=== PATIENT | male | born 1950 | race Caucasian/White ===

== ENCOUNTER 2016-10-09 17:58 | Emergency (ER) | payer MEDICARE, OTHER ==
--- NOTE | 2016-10-09 19:18 | ED ---
General Adult HPI - General Source: patient, RN notes reviewed Mode of arrival: ambulatory <Richard Kerns - Last Filed: 10/09/16 22:05> <Clark Harper - Last Filed: 10/10/16 00:03> - General Chief complaint: Recheck/Abnormal Lab/Rx Stated complaint: ABNORMAL LABS, LIVER FUNCTION BILIRUBIN Time Seen by Provider: 10/09/16 18:50 - History of Present Illness Initial comments: This is a 65-year-old male who comes emergency Department because early in the day he went saw his primary medical care doctor and had some lab work done and they noted that his liver enzymes were elevated so they sent him to the emergency department. Patient states for the last week has felt extremely fatigued and ill however he has no pain. Patient denies any fever chills. Patient denies chest pain difficulty breathing first of breath. Patient states he breaks out in a sweat with even mild exertion. Patient denies any headache patient denies numbness or focal weakness. Patient denies any back pain. Patient denies any recent injury or trauma. states she thinks his abdomen is more distended than normal. Patient states he is a fairly heavy drinker of beer and wine almost daily. Patient states he regularly has his liver enzymes drawn because he is on a statin drug. (Richard Kerns) - Related Data Home Medications Medication Instructions Recorded Confirmed Atorvastatin [Lipitor] 20 mg PO HS 10/09/16 10/09/16 Ciprofloxacin HCl [Cipro] 500 mg PO Q12HR 10/09/16 10/09/16 [place]-3 Fatty Acids/Fish Oil [Fish 1 cap PO DAILY 10/09/16 10/09/16 Oil 1,000 mg Softgel] Omeprazole [PriLOSEC] 20 mg PO DAILY 10/09/16 10/09/16 Vitamin B Complex 1 cap PO DAILY 10/09/16 10/09/16 Allergies Allergy/AdvReac Type Severity Reaction Status Date / Time No Known Allergies Allergy Verified 10/09/16 18:52 Review of Systems ROS Other: All systems not noted in ROS Statement are negative. <Richard Kerns - Last Filed: 10/09/16 22:05> ROS Other: All systems not noted in ROS Statement are negative. <Clark Harper - Last Filed: 10/10/16 00:03> ROS Statement: Those systems with pertinent positive or pertinent negative responses have been documented in the HPI. Past Medical History Past Medical History: Hyperlipidemia History of Any Multi-Drug Resistant Organisms: None Reported Past Surgical History: Orthopedic Surgery Additional Past Surgical History / Comment(s): KNN, SHOULDER Past Psychological History: No Psychological Hx Reported Smoking Status: Never smoker Past Alcohol Use History: Occasional Past Drug Use History: None Reported <Richard Kerns - Last Filed: 10/09/16 22:05> General Exam <Richard Kerns - Last Filed: 10/09/16 22:05> <Clark Harper - Last Filed: 10/10/16 00:03> - General Exam Comments Initial Comments: GENERAL: Patient is well-developed and well-nourished. Patient is nontoxic and well- hydrated and is in mild distress. Patient was diaphoretic ENT: Neck is soft and supple. No significant lymphadenopathy is noted. Oropharynx is clear. Moist mucous membranes. Neck has full range of motion without eliciting any pain. EYES: The sclera were anicteric and conjunctiva were pink and moist. Extraocular movements were intact and pupils were equal round and reactive to light. Eyelids were unremarkable. PULMONARY: Unlabored respirations. Good breath sounds bilaterally. No audible rales rhonchi or wheezing was noted. CARDIOVASCULAR: There is a regular rate and rhythm without any murmurs gallops or rubs. ABDOMEN: Soft and nontender with normal bowel sounds. Mild distention of the abdomen. No palpable organomegaly was noted. There is no palpable pulsatile mass. SKIN: Skin is clear with no lesions or rashes and otherwise unremarkable. NEUROLOGIC: Patient is alert and oriented x3. Cranial nerves II through XII are grossly intact. Motor and sensory are also intact. Normal speech, volume and content. Symmetrical smile. MUSCULOSKELETAL: Normal extremities with adequate strength and full range of motion. No lower extremity swelling or edema. No calf tenderness. LYMPHATICS: No significant lymphadenopathy is noted PSYCHIATRIC: Normal psychiatric evaluation. Normal interpersonal interactions appears functionally intact in deals appropriately with others. No signs of depression. No signs of anxiety. (Richard Kerns) Medical Decision Making - Lab Data Result diagrams: 10/09/16 19:50 10/09/16 19:50 <Richard Kerns - Last Filed: 10/09/16 22:05> - Lab Data Result diagrams: 10/09/16 19:50 10/09/16 19:50 <Clark Harper - Last Filed: 10/10/16 00:03> - Medical Decision Making EKG shows a normal sinus rhythm at 99 bpm MS interval 294 QRS is 80 QT interval is 358 QTC is 459. Patient's EKG shows T-wave inversions in leads V4 V5 and V6. As well as T-wave flattening in leads [address] cMkeon will be taking over the care of this patient at 10 PM (Richard Kerns ) - Lab Data Lab Results 10/09/16 10/09/16 10/09/16 Range/Units 19:50 19:50 19:50 WBC 5.6 (3.8-10.6) k/uL RBC 4.16 L (4.30-5.90) m/uL Hgb 14.7 (13.0-17.5) gm/dL Hct 42.9 (39.0-53.0) % MCV 103.0 H (80.0-100.0) fL MCH 35.3 H (25.0-35.0) pg MCHC 34.3 (31.0-37.0) g/dL RDW 14.1 (11.5-15.5) % Plt Count 156 (150-450) k/uL Neutrophils % 56 % Lymphocytes % 35 % Monocytes % 5 % Eosinophils % 1 % Basophils % 1 % Neutrophils # 3.2 (1.3-7.7) k/uL Lymphocytes # 2.0 (1.0-4.8) k/uL Monocytes # 0.3 (0-1.0) k/uL Eosinophils # 0.1 (0-0.7) k/uL Basophils # 0.0 (0-0.2) k/uL Macrocytosis Slight PT 10.8 (9.0-12.0) sec INR 1.1 (<1.1) APTT 22.9 (22.0-30.0) sec Sodium 133 L (137-145) mmol/L Potassium 3.5 (3.5-5.1) mmol/L Chloride 98 (98-107) mmol/L Carbon Dioxide 20 L (22-30) mmol/L Anion Gap 15 mmol/L BUN 5 L (9-20) mg/dL Creatinine 0.67 (0.66-1.25) mg/dL Est GFR (MDRD) Af Amer >60 (>60 ml/min/1.73 sqM) Est GFR (MDRD) Non-Af >60 (>60 ml/min/1.73 sqM) Glucose 127 H (74-99) mg/dL Calcium 9.2 (8.4-10.2) mg/dL Magnesium 1.8 (1.6-2.3) mg/dL Total Bilirubin 3.5 H (0.2-1.3) mg/dL AST 808 H (17-59) U/L ALT 363 H (21-72) U/L Alkaline Phosphatase 203 H (38-126) U/L Troponin I (0.000-0.034) ng/mL Total Protein 7.2 (6.3-8.2) g/dL Albumin 4.1 (3.5-5.0) g/dL Serum Alcohol 94 mg/dL Hepatitis A IgM Ab NEGATIVE Hep Bs Antigen Negative Hep B Core IgM Ab NEGATIVE Hep C IgG Ab Negative (Negative) 10/09/16 Range/Units 19:50 WBC (3.8-10.6) k/uL RBC (4.30-5.90) m/uL Hgb (13.0-17.5) gm/dL Hct (39.0-53.0) % MCV (80.0-100.0) fL MCH (25.0-35.0) pg MCHC (31.0-37.0) g/dL RDW (11.5-15.5) % Plt Count (150-450) k/uL Neutrophils % % Lymphocytes % % Monocytes % % Eosinophils % % Basophils % % Neutrophils # (1.3-7.7) k/uL Lymphocytes # (1.0-4.8) k/uL Monocytes # (0-1.0) k/uL Eosinophils # (0-0.7) k/uL Basophils # (0-0.2) k/uL Macrocytosis PT (9.0-12.0) sec INR (<1.1) APTT (22.0-30.0) sec Sodium (137-145) mmol/L Potassium (3.5-5.1) mmol/L Chloride (98-107) mmol/L Carbon Dioxide (22-30) mmol/L Anion Gap mmol/L BUN (9-20) mg/dL Creatinine (0.66-1.25) mg/dL Est GFR (MDRD) Af Amer (>60 ml/min/1.73 sqM) Est GFR (MDRD) Non-Af (>60 ml/min/1.73 sqM) Glucose (74-99) mg/dL Calcium (8.4-10.2) mg/dL Magnesium (1.6-2.3) mg/dL Total Bilirubin (0.2-1.3) mg/dL AST (17-59) U/L ALT (21-72) U/L Alkaline Phosphatase (38-126) U/L Troponin I <0.012 (0.000-0.034) ng/mL Total Protein (6.3-8.2) g/dL Albumin (3.5-5.0) g/dL Serum Alcohol mg/dL Hepatitis A IgM Ab Hep Bs Antigen Hep B Core IgM Ab Hep C IgG Ab (Negative) Disposition <Richard Kerns - Last Filed: 10/09/16 22:05> <Clark Harper - Last Filed: 10/10/16 00:03> Clinical Impression: Hepatitis Disposition: HOME SELF-CARE Condition: Fair Instructions: Non-Alcoholic Fatty Liver Disease (ED) Additional Instructions: As we discussed, follow-up with your physician regarding the liver test results. Avoid using any products with Tylenol. Do not drink any alcohol. Do not use any statin medications. Referrals: Richard Deshpande MD [Primary Care Provider] - 1-2 days Blanche Hernandez MD [STAFF PHYSICIAN] - 1-2 days
[2016-10-09 20:00] LABS: Basophils % (A) 1 %; CH 35.6; CHCM 34.7; Eosinophils # (A) 0.1 k/uL (0-0.7); Eosinophils % (A) 1 %; HCT 42.9 % (39.0-53.0); HDW 2.51; HGB 14.7 gm/dL (13.0-17.5); Luc % (Auto) 2; Lymphocytes % (A) 35 %; MCH 35.3 pg (25.0-35.0); MCHC 34.3 g/dL (31.0-37.0); Macrocytosis Slight; Mean Platelet Volume 7.7; Monocytes # (A) 0.3 k/uL (0-1.0); Monocytes % (A) 5 %; Neutrophils # (A) 3.2 k/uL (1.3-7.7); Neutrophils % (A) 56 %; RBC 4.16 m/uL (4.30-5.90); RDW 14.1 % (11.5-15.5); WBC 5.6 k/uL (3.8-10.6); WBC (Perox) 5.33
[2016-10-09 20:12] LABS: INR 1.1 (<1.1); Partial Thromboplastin Time 22.9 sec (22.0-30.0); Prothrombin Time 10.8 sec (9.0-12.0)
[2016-10-09 20:18] LABS: ALT 363 U/L (21-72); Alkaline Phosphatase 203 U/L (38-126); Anion Gap 15 mmol/L; Blood Urea Nitrogen 5 mg/dL (9-20); Calcium 9.2 mg/dL (8.4-10.2); Carbon Dioxide 20 mmol/L (22-30); Chloride 98 mmol/L (98-107); Glucose 127 mg/dL (74-99); Magnesium 1.8 mg/dL (1.6-2.3); Non-African American GFR(MDRD) >60 (>60 ml/min/1.73 sqM); Potassium 3.5 mmol/L (3.5-5.1); Sodium 133 mmol/L (137-145); Total Bilirubin 3.5 mg/dL (0.2-1.3); Total Protein 7.2 g/dL (6.3-8.2)
[2016-10-09 20:25] LABS: AST 808 U/L (17-59)
[2016-10-09 20:27] LABS: Alcohol 94 mg/dL
[2016-10-09 20:47] LABS: Hepatitis B Surface Ag Index 0.08
[2016-10-09 20:53] LABS: Hepatitis B Core IgM Index 0.05
--- NOTE | 2016-10-09 21:21 | US ---
EXAMINATION TYPE: US abdomen complete DATE OF EXAM: 10/09/2016 9:04 PM COMPARISON: NONE CLINICAL HISTORY: Nausea . Elevated liver enzymes EXAM MEASUREMENTS: Liver Length: 23.6 cm Gallbladder Wall: 0.2 cm CBD: 0.3 cm Spleen: 10.4 cm Right Kidney: 11.1 x 5.6 x 6.3 cm Left Kidney: 11.3 x 6.2 x 5.5 cm Pancreas: Obscured by bowel gas, visualized portions show no mass Liver: Increased attenuation. Course, heterogeneous echotexture. Enlarged Gallbladder: No stones or sludge visualized Evidence for sonographic Mario's sign: No CBD: wnl as visualized, distal portion obscured by bowel gas Spleen: wnl Right Kidney: No hydronephrosis or masses seen Left Kidney: Hyperechoic area visualized lower pole measuring 0.6 cm nonspecific. Upper IVC: Limited visualization due to overlying bowel, visualized portions wnl Abd Aorta: Limited visualization due to overlying bowel, visualized portions wnl Pancreas is obscured by overlying bowel gas. Liver is heterogeneously hyperechoic in appearance witho ut intrahepatic ductal dilatation. Evaluation for focal masses is suboptimal due to the heterogeneity . Visualized portion of gallbladder is unremarkable. IMPRESSION: Suboptimal study, marked heterogeneity of liver is consistent with diffuse fatty infiltra tion or underlying hepatocellular disease. Imaging guided random biopsy for tissue analysis can be pe rformed if desired.
[2016-10-09] MEDS ORDERED: RX INFO: IV CONTRAST WAS GIVEN 1 EACH MISC MISCELLANE PRN (21:57)
[2016-10-09 22:11] VITALS: TEMP 99.8
--- NOTE | 2016-10-09 23:05 | CT ---
EXAM: CT Abdomen and Pelvis With Intravenous Contrast. CLINICAL HISTORY: Reason: Pain TECHNIQUE: Axial computed tomography images of the abdomen and pelvis with intravenous contrast. CTDI is 38.2mGy and DLP is 1532.5 MGy-cm This CT exam was performed using one or more of the following dose reduction techniques: automated exposure control, adjustment of the mA and/or kV according to patient size, and/or use of iterative reconstruction technique. COMPARISON: No relevant prior studies available. FINDINGS: Lower thorax: Imaged lung bases are clear. Moderate hiatal hernia. ABDOMEN: Liver: Evidence of hepatic fatty infiltration. No focal hepatic abnormalities identified. Gallbladder and bile ducts: No radiopaque gallstones. No evidence of biliary dilatation. Pancreas: Pancreas is unremarkable. No ductal dilation. Spleen: Spleen is unremarkable. Accessory splenic nodule along inferior aspect of spleen. Adrenals: No adrenal masses. Kidneys and ureters: Bilateral renal enhancement without focal renal abnormalities. No evidence of renal calculi or hydronephrosis. Abdominal aorta: Mild aortic atherosclerotic disease without abdominal aortic aneurysm. Stomach and bowel: No evidence of bowel obstruction. Appendix not identified. No evidence of appendicitis. No abnormal inflammatory changes or fluid collections identified. Appendix: See above. PELVIS: Bladder: Urinary bladder is nondistended, but otherwise unremarkable. Reproductive: Unremarkable as visualized. ABDOMEN and PELVIS: Intraperitoneal space: Unremarkable. No free air. No significant fluid collection. Bones/joints: Left sacral small sclerotic nodular density which is nonspecific but likely reflects bone island. No acute bony abnormalities identified. Soft tissues: Unremarkable. Vasculature: See above. Lymph nodes: No abnormal masses or adenopathy. IMPRESSION: Moderate size hiatal hernia. Hepatic fatty infiltration. No evidence of acute abdominal-pelvic disease.
[2016-10-09 23:16] LABS: Hepatitis C Virus IgG Index 0.03
[2016-10-09 23:20] LABS: Hepatitis C Virus IgG Ab Negative (Negative)
[2016-10-10 00:44] VITALS: BP 166/93; PULSE 105; RESP 16
== END 2016-10-10 00:43 | disposition home or self-care (01) ==
LOC: EC 17:58
DX: K75.9 Inflammatory liver disease, unspecified (principal); E78.5 Hyperlipidemia, unspecified; Z79.899 Other long term (current) drug therapy
CPT/HCPCS: 36415; 93005; 80053; 80074; 83735; 84484; 85025; 85610; 85730; 80320; 76700; 74177; 99284; Q9967

== ENCOUNTER → 2017-03-30 | Outpatient (CLI) | payer MEDICARE, OTHER ==
--- NOTE | 2017-03-30 14:11 | US ---
EXAMINATION TYPE: US venous doppler duplex LE RT DATE OF EXAM: 03/30/2017 2:04 PM COMPARISON: NONE CLINICAL HISTORY: I82.4 DVT. SIDE PERFORMED: Right TECHNIQUE: The lower extremity deep venous system is examined utilizing real time linear array sonog thalia with graded compression, doppler sonography and color-flow sonography. VESSELS IMAGED: External Iliac Vein (EIV) Common Femoral Vein Deep Femoral Vein Greater Saphenous Vein * Femoral Vein Popliteal Vein Proximal Calf Veins (* superficial vessels) [employer] Operator impression relayed to Diana at OA, right leg NEGATIVE for DVT Right Leg: Negative for DVT Grayscale, color doppler, spectral doppler imaging performed of the deep veins of the lower extremiti es. There is normal flow, compressibility, vascular waveforms. IMPRESSION: No sonographic evidence of deep venous thrombosis within the right lower extremity.
== END | disposition home or self-care (01) ==
LOC: RADUSWWP 13:46
PROVIDERS: ATTEND Orthopaedic Surgery
DX: I82.401 Acute embolism and thrombosis of unspecified deep veins of right lower extremity (principal)